=== PATIENT | male | born 1985 ===

== ENCOUNTER → 2016-04-02 | Outpatient (CLI) | payer OTHER ==
--- NOTE | 2016-04-02 12:33 | Diagnostic Imaging Report ---
EXAMINATION: Right shoulder, 3 views. COMPARISON: None. HISTORY: 30-year-old male, right shoulder pain. FINDINGS: The humeral head is normally positioned relative to the glenoid. The acromioclavicular joint is normally aligned. The glenohumeral and acromioclavicular joints are unremarkable in appearance. There is no identified acute fracture. IMPRESSION: Unremarkable right shoulder radiographs. Report was stat faxed to office of SHERITA Trinidad, @ 12:25 PM/meli. Dictated by: Dictated on workstation # [id number]
== END ==
LOC: RAD 09:32
PROVIDERS: ATTEND Nurse Practitioner Family
DX: M25.511 Pain in right shoulder (principal)
CPT/HCPCS: 73030

== ENCOUNTER → 2016-04-13 | Outpatient (CLI) | payer OTHER ==
--- NOTE | 2016-04-13 14:18 | Diagnostic Imaging Report ---
PROCEDURE: MRI right joint upper extremity without contrast. TECHNIQUE: Multiplanar, multisequence MR imaging of the right shoulder was performed without contrast. COMPARISON: Right shoulder radiographs of 04/02/2015. INDICATION: Right shoulder pain. FINDINGS: Rotator cuff: No rotator cuff tear. There is mild tendinopathy of the supraspinatus insertional fibers. No rotator cuff muscle atrophy or denervation injury. Glenoid labrum: By non arthrogram imaging, the glenoid labrum is normal. No paralabral cyst. Long head of biceps: The long head of the biceps is normal in morphology and position. No tear or significant tendinopathy. Bones and cartilage: No fracture or Hill-Sachs deformity of the humeral head. No high-grade chondromalacia in the glenohumeral joint. The acromioclavicular joint is normal in alignment. However, there is T2 hyperintense edema-like signal surrounding the AC joint as well as edema in the distal clavicle. No significant cystic erosive changes are present. Soft tissues: No MRI findings of adhesive capsulitis. No glenohumeral joint effusion. No significant subacromial/subdeltoid bursitis. IMPRESSION: 1. Edema signal surrounding the acromioclavicular joint with mild bone marrow edema in the distal clavicle. These findings can be seen with low-grade AC joint injury if there is a history of recent trauma. If there is no history of trauma, this could be due to repetitive microtrauma such as weightlifting resulting in early distal clavicular osteolysis. 2. No rotator cuff tear. Mild tendinopathy of the supraspinatus. 3. Long head of biceps is normal. Dictated by: Dictated on workstation # [id number]
== END ==
LOC: RAD 13:14
PROVIDERS: ATTEND Nurse Practitioner Family
DX: M25.511 Pain in right shoulder (principal); R60.0 Localized edema
CPT/HCPCS: 73221